=== PATIENT | female | born 1990 | race Caucasian/White ===

== ENCOUNTER 2019-05-11 17:15 | Emergency (ER) | payer BC, SELFPAY ==
[2019-05-11 17:18] VITALS: BP 139/71; PULSE 63; RESP 18; TEMP 36.3; O2SAT 97
--- NOTE | 2019-05-11 17:33 | ED.GENADUL_ITS ---
Discharge Plan Disposition Patient Disposition: HOME Condition: Improving Discharge Details Chief Complaint: Sorethroat Clinical Impression: Pharyngitis Primary Care Provider: Viri Ramírez ED Provider: Rei Rogers Home Meds and New Rx's Prescriptions: New penicillin V potassium 500 mg tablet 500 mg PO TID 10 Days Qty: 30 RF: 0 No Action citalopram 10 MG tablet 40 mg PO DAILY RF: 0 Discharge Instructions Instructions: Pharyngitis (ED) Additional Instructions: Small, frequent sips of fluids to maintain hydration. Tylenol and/or ibuprofen if needed for discomfort. Return if you develop high fever, drooling, difficulty swallowing, or any other acute concerns. Take antibiotics as prescribed. Medical Decision Making 28-year-old female presents from home complaining of 1 day of sore throat. She has no drooling, no change to voice. She has had weeks of dry cough but it is unchanged. Her vital signs are reassuring, her exam is consistent with an exudative pharyngitis and a rapid strep test is positive. Discussed with her treatment with a course of penicillin, strategies for home management, as well as indications to seek a reevaluation in the ER. She is stable and appropriate to discharge to home at this time. HPI General Mode of arrival: ambulatory . Date/Time Provider Initiated Documentation: 05/11/19 17:16 . Limitations to Documentation: no limitations . Information obtained by: patient . History of Present Illness 28 year old F presents to the emergency department with the chief complaint of Sore throat and fever, described as moderate, Quality is described as dull, and is localized to the mouth. Patient reports no radiation. Patient started experiencing this hour(s) and it has been constant. No relieving factors improve symptom(s), No exacerbating factors reported . Patient notes fever/chills and other (No change to voice, no drooling.). Patient did receive the following treatments prior to arrival, none Related Data Home Medications Medication Instructions Recorded Confirmed citalopram 40 mg PO DAILY 02/07/16 05/11/19 penicillin V potassium 500 mg PO TID 10 Days #30 tab 05/11/19 Previous Rx's Medication Instructions Recorded penicillin V potassium 500 mg PO TID 10 Days #30 tab 05/11/19 Allergies Allergy/AdvReac Type Severity Reaction Status Date / Time tamsulosin [From Flomax] AdvReac Unverified 05/11/19 17:26 General Stated Complaint: Sorethroat GAMA: 4 Review of Systems Narrative: 4 systems reviewed and otherwise negative. PFSH Family History Grandfather Heart disease Grandmother Diabetes Heart disease Myocardial infarction Social History Smoking/Tobacco Use Status: Former Tobacco Use Drug use: Never Substance use type: does not use Do you feel safe at home: Yes Do you feel safe in your relationship?: Yes Exam Narrative Exam Narrative: GEN: awake, alert, oriented 3. Pleasant, well groomed, interactive. HEAD: Normocephalic, atraumatic ENT: Mucous membranes moist, oropharynx erythematous with overlying white exudate, uvula midline, no asymmetry, tympanic membranes clear bilaterally, External ear exam unremarkable EYES: PERRL, EOMI NECK: Full ROM, no ZOEY, no menigismus CHEST/RESP: Nontender, clear to auscultation bilateral, no wheeze/rhonchi/rales CARDIOVASCULAR: RRR, no murmur, rub moriah. 2+ Rad pulse bilateral EXT: Full ROM, no edema, no rash Neuro: Grossly normal neurologic exam, conversant, interactive. Psych: Speech fluent, thoughts congruent, affect normal Course Vital Signs Vital signs: Vital Signs Temperature 36.3 C L 05/11/19 17:18 Pulse 63 05/11/19 17:18 Respiratory Rate 18 05/11/19 17:18 Blood Pressure 139/71 05/11/19 17:18 Pulse Oximetry 97 05/11/19 17:18 Temperature 36.3 C L 05/11/19 17:18 Pulse 63 05/11/19 17:18 Respiratory Rate 18 05/11/19 17:18 Respiratory Effort Non-Labored 05/11/19 17:21 Blood Pressure 139/71 05/11/19 17:18 Blood Pressure Position Sitting 05/11/19 17:18 Pulse Oximetry 97 05/11/19 17:18 Oxygen Delivery Method Room Air 05/11/19 17:18 Oxygen Flow Rate 0 05/11/19 17:18 Pain Level 3 05/11/19 17:18
== END 2019-05-11 17:41 | disposition home or self-care (01) ==
PROVIDERS: Emergency Provider Emergency Medicine; PCP Nurse Practitioner
DX: J02.0 Streptococcal pharyngitis (principal)
CPT/HCPCS: 87880; 99283

== ENCOUNTER 2019-11-16 08:52 | Emergency (ER) | payer BC, SELFPAY ==
[2019-11-16 08:59] VITALS: BP 132/78; PULSE 63; RESP 20; TEMP 36.6; O2SAT 96
--- NOTE | 2019-11-16 09:00 | DI.RAD_ITS ---
EXAM: XR FOOT RT COMPLETE CLINICAL HISTORY: medial, arch pain. Shield abdomen please TECHNIQUE: COMPARISON: No exams were available for comparison FINDINGS: Three views were obtained. There is a small osteophyte of the site of attachment of the plantar fasc ia on the calcaneus. No other significant bony or soft tissue abnormality seen. IMPRESSION: RADIATION DOSE DELIVERED: Total DLP
--- NOTE | 2019-11-16 09:11 | W.ED.GENAD ---
Discharge Plan Disposition Patient Disposition: HOME Condition: Improving Discharge Details Chief Complaint: Orthopedic Clinical Impression: Plantar fasciitis of right foot Primary Care Provider: None,None ED Provider: Rei Rogers Home Meds and New Rx's Prescriptions: No Action PNV cmb#95-ferrous fumarate-FA [ Multivitamins] 28 mg iron- 800 mcg Tablet 1 tab PO DAILY RF: 0 Discharge Instructions Instructions: Plantar Fasciitis (ED), Plantar Fasciitis Exercises (ED) Additional Instructions: Please follow-up with physical therapy as prescribed. May trial an arch support/orthotic in your shoes. Please stretch the foot and ankle by flexing and extending the toes. Wear a walking boot as needed for comfort Stand Alone Forms: Physical Therapy Referral Medical Decision Making 28-year-old female who is approximately 9 weeks . She presents with atraumatic right heel pain that began this morning upon awakening. No fever, rash, trauma. States it is similar to previous plantar fasciitis. She is tender along the medial heel and arch of the foot with mild overlying swelling present. Referred for x-ray which does not reveal underlying bony injury, but does note small osteophyte at the site of the attachment of the plantar fascia on the calcaneus. We will have her wear a boot for comfort. We will refer her to physical therapy and she will begin stretching exercises. She understands plan of outpatient care. HPI General Mode of arrival: ambulatory. Date/Time Provider Initiated Documentation: 11/16/19 08:55. Limitations to Documentation: no limitations. Information obtained by: patient. History of Present Illness 28 year old F presents to the emergency department with the chief complaint of Right medial heel/arch pain this morning, described as moderate and similar to prior episodes, Quality is described as dull and constant, and is localized to the right and lower extremity. Patient reports no radiation. Patient started experiencing this hour(s) and it has been constant. Rest improves symptom(s), Other factors that worsen symptoms (Weightbearing) . Patient notes denies fever/chills and rash. Patient did receive the following treatments prior to arrival, none Related Data Home Medications Medication Instructions Recorded Confirmed PNV cmb#95-ferrous fumarate-FA 1 tab PO DAILY 11/16/19 11/16/19 [ Multivitamins] Allergies Allergy/AdvReac Type Severity Reaction Status Date / Time tamsulosin [From Flomax] AdvReac Unverified 11/16/19 09:02 General Stated Complaint: Orthopedic GAMA: 4 Review of Systems Narrative: Similar to previous plantar fasciitis. Denies fall or injury. No fever. No rash or bruising. Taking vitamins. No other significant positives on review of systems. No pain or swelling in the leg. No prolonged immobilization. 6 systems reviewed and otherwise negative [facility] Family History Grandfather Heart disease Grandmother Diabetes Heart disease Myocardial infarction Social History Smoking/Tobacco Use Status: Former Tobacco Use Alcohol Intake: former Drug use: Never Substance use type: does not use Do you feel safe at home: Yes Do you feel safe in your relationship?: Yes Exam Narrative Exam Narrative: GEN: awake, alert, oriented 3. Pleasant, well groomed, interactive. HEAD: Normocephalic, atraumatic EYES: PERRL, EOMI NECK: Full ROM, no ZOEY, no menigismus CHEST/RESP: No respiratory distress EXT: Full ROM, tender right medial heel and arch of foot. Minimal right medial arch swelling. No erythema. Normal pulses graded 2+ DP and PT bilaterally. No cords or swelling of the calves. No tenderness of the calves. Neuro: Grossly normal neurologic exam, conversant, interactive. Psych: Speech fluent, thoughts congruent, affect normal Course Vital Signs Vital signs: Vital Signs Temperature 36.6 C 11/16/19 08:59 Pulse 63 11/16/19 08:59 Respiratory Rate 20 11/16/19 08:59 Blood Pressure 132/78 11/16/19 08:59 Pulse Oximetry 96 11/16/19 08:59 Temperature 36.6 C 11/16/19 08:59 Temperature Source Skin 11/16/19 08:59 Pulse 63 11/16/19 08:59 Respiratory Rate 20 11/16/19 08:59 Respiratory Effort Non-Labored 11/16/19 09:05 Blood Pressure 132/78 11/16/19 08:59 Blood Pressure Position Sitting 11/16/19 08:59 Pulse Oximetry 96 11/16/19 08:59 Oxygen Delivery Method Room Air 11/16/19 08:59 Oxygen Flow Rate 0 11/16/19 08:59 Pain Level 10 11/16/19 08:59
== END 2019-11-16 10:08 | disposition home or self-care (01) ==
PROVIDERS: Emergency Provider Emergency Medicine
DX: O99.89 Other specified diseases and conditions complicating pregnancy, childbirth and the puerperium (principal); M72.2 Plantar fascial fibromatosis
CPT/HCPCS: 99283; 73630; 99282; L4361